=== PATIENT | male | born 1965 | race African-American/Black ===

== ENCOUNTER 2016-12-17 09:11 | Emergency (ER) | payer OTHER ==
[~2016-12-17] VITALS: Ht 167.6 cm; Wt 65.0 kg
[~2016-12-17 09:11] MED LIST: 1-ME1LIQ PO; BACT800T5 PO; DARU1TAB PO; LISI-363 PO; TENO300 PO; [UNRECOGNIZED DRUG - CODE] PO
--- NOTE | 2016-12-17 09:39 | PD ---
HPI Chief Complaint: Bowen act with homicidal ideation Time Seen by Provider: 09:24 Travel History International Travel<30 days: No Contact w/Intl Traveler<30days: No Traveled to known affect area: No History of Present Illness HPI This is a 51-year-old gentleman with history of HIV disease, hypertension, who is brought in under a Bowen act after he reportedly stated he wanted to kill an associate of his. The patient states that he called 911 because he knew that if he did follow through with his intent, he would be in care home. He states that he does have homicidal ideation. He denies any suicidal ideation. He states homicidal ideation is to this one individual whom he reports having bad relations with. The patient has no somatic complaints at this time. He does report that he was drinking heavily over the last 24 hours. He denies any drugs of abuse. He does state that he uses occasional tobacco products. PFSH Past Medical History Hx Anticoagulant Therapy: No Blood Disorders: No Cardiovascular Problems: Yes (HTN) Chemotherapy: No Congestive Heart Failure: No Cerebrovascular Accident: No Diabetes: No Diminished Hearing: No Gastrointestinal Disorders: No Genitourinary: No Hypertension: Yes Immune Disorder: Yes (HIV POSITIVE) Musculoskeletal: No Neurologic: No Psychiatric: No Reproductive: No Respiratory: No Immunizations Current: No Sleep Apnea: No Thyroid Disease: Yes (HYPOTHYROID) Past Surgical History Abdominal Surgery: No Appendectomy: No Cardiac Surgery: No Cholecystectomy: No Ear Surgery: No Endocrine Surgery: No Eye Surgery: No Genitourinary Surgery: No Gynecologic Surgery: No Joint Replacement: No Neurologic Surgery: No Oral Surgery: No Thoracic Surgery: No Other Surgery: Yes (RIGHT KNEE SURGERY) Social History Alcohol Use: Yes (DAILY) Tobacco Use: Yes (1 cig per day ) Substance Use: Yes (MARIJUANA) Allergies-Medications (Allergen,Severity, Reaction): Coded Allergies: No Known Allergies (Verified , 12/17/16) Reported Meds & Prescriptions Reported Meds & Active Scripts Active Reported Triumeq (Osqknhvu-Uywfmxbrnqrh-Iqjifaygma) 600-50-300 Mg Tab 1 Tab PO DAILY Hazardous agent; use appropriate precautions for handling & disposal. Review of Systems Except as stated in HPI: all other systems reviewed are Neg General / Constitutional: No: Fever, Chills HENT: No: Headaches Cardiovascular: No: Chest Pain or Discomfort, Palpitations Respiratory: No: Cough, Shortness of Breath Gastrointestinal: No: Nausea, Vomiting, Abdominal Pain Musculoskeletal: Positive: Pain (right sided rib pain), No: Weakness Neurologic: No: Weakness, Dizziness, Syncope Psychiatric: Positive: Substance Abuse, Homicidal Ideation, No: Suicidal Ideations Physical Exam Narrative GENERAL: Well-nourished, well-developed patient, in no acute respiratory distress. SKIN: Focused skin assessment warm/dry. HEAD: Normocephalic/atraumatic. EYES: No scleral icterus. No injection or drainage. NECK: Supple, trachea midline. CARDIOVASCULAR: Regular rate and rhythm without murmurs, gallops, or rubs. RESPIRATORY: Breath sounds equal bilaterally. No accessory muscle use. Patient has tenderness on his right lateral rib cage. There is no crepitance or deformity noted. GASTROINTESTINAL: Abdomen soft, non-tender, nondistended. MUSCULOSKELETAL: No cyanosis, or edema. NEUROLOGICAL: Awake and alert. Cranial nerves II through XII intact. Motor grossly within normal limits. Five out of 5 muscle strength in all muscle groups. Normal speech, despite alcohol use. PSYCHIATRIC: No delusional thought processes. No hallucinations. Data Data Last Documented VS Vital Signs Date Time Temp Pulse Resp B/P Pulse Ox O2 Delivery O2 Flow Rate FiO2 12/17/16 09:49 98.4 104 18 176/105 100 Orders Complete Blood Count With Diff (12/17/16 09:25) Comprehensive Metabolic Panel (12/17/16 09:25) Psych Screen (12/17/16 09:25) Drug Screen, Random Urine (12/17/16 09:25) Alcohol (Ethanol) (12/17/16 09:25) Chest, Single Ap (12/17/16 09:25) Diet Regular Basic (12/17/16 Lunch) Labs Laboratory Tests Test 12/17/16 12/17/16 09:30 09:40 White Blood Count 6.0 TH/MM3 Red Blood Count 4.31 MIL/MM3 Hemoglobin 13.8 GM/DL Hematocrit 39.3 % Mean Corpuscular Volume 91.2 FL Mean Corpuscular Hemoglobin 31.9 PG Mean Corpuscular Hemoglobin 35.0 % Concent Red Cell Distribution Width 16.8 % Platelet Count 354 TH/MM3 Mean Platelet Volume 6.9 FL Neutrophils (%) (Auto) 37.8 % Lymphocytes (%) (Auto) 53.8 % Monocytes (%) (Auto) 7.0 % Eosinophils (%) (Auto) 0.8 % Basophils (%) (Auto) 0.6 % Neutrophils # (Auto) 2.3 TH/MM3 Lymphocytes # (Auto) 3.2 TH/MM3 Monocytes # (Auto) 0.4 TH/MM3 Eosinophils # (Auto) 0.0 TH/MM3 Basophils # (Auto) 0.0 TH/MM3 CBC Comment DIFF FINAL Differential Comment Sodium Level 140 MEQ/L Potassium Level 4.1 MEQ/L Chloride Level 104 MEQ/L Carbon Dioxide Level 30.3 MEQ/L Anion Gap 6 MEQ/L Blood Urea Nitrogen 8 MG/DL Creatinine 0.85 MG/DL Estimat Glomerular Filtration 114 ML/MIN Rate Random Glucose 83 MG/DL Calcium Level 8.5 MG/DL Total Bilirubin 0.2 MG/DL Aspartate Amino Transf 32 U/L (AST/SGOT) Alanine Aminotransferase 25 U/L (ALT/SGPT) Alkaline Phosphatase 63 U/L Total Protein 8.9 GM/DL Albumin 3.7 GM/DL Ethyl Alcohol Level 293 MG/DL Urine Opiates Screen NEG Urine Barbiturates Screen NEG Urine Amphetamines Screen NEG Urine Benzodiazepines Screen NEG Urine Cocaine Screen NEG Urine Cannabinoids Screen NEG MDM Medical Decision Making Medical Screen Exam Complete: Yes Emergency Medical Condition: Yes Medical Record Reviewed: Yes Differential Diagnosis Substance induced mood disorder versus psychosis versus metabolic derangement. Narrative Course 51-year-old gentleman with history of alcohol abuse, presents here under Bowen act after he threatened to kill a acquaintance. The patient states that when people "cross him" he has no problem threatening to kill them. The patient did call 911 because he realizes that if things progress he would likely kill this person. He does report drinking alcohol today. His alcohol level is 293. He will be medically clear for psychiatric evaluation. He is awake. Diagnosis Primary Impression: Homicidal ideation Additional Impressions: Alcohol intoxication medically cleared Gael Singh MD Dec 17, 2016 09:39
[2016-12-17] MEDS ORDERED: ABAC1TAB3 PO (09:47)
[2016-12-17 09:49] VITALS: BP 176/105; PULSE 104; RESP 18; TEMP 98.4; O2SAT 100
[2016-12-17 09:56] LABS: AUTOMATED NEUTROPHIL # 2.3 TH/MM3 (1.8-7.7); BASOPHIL % 0.6 % (0.0-2.0); EOSINOPHIL % 0.8 % (0.0-4.0); HEMATOCRIT 39.3 % (39.0-51.0); HEMO FLAGS DIFF FINAL; LYMPH % 53.8 % (9.0-44.0); LYMPHOCYTE # 3.2 TH/MM3 (1.0-4.8); MEAN CELL VOLUME 91.2 FL (80.0-100.0); MEAN CORPUSCULAR HEMOGLOBIN 31.9 PG (27.0-34.0); NEUT % 37.8 % (16.0-70.0); PLATELET COUNT 354 TH/MM3 (150-450); RED BLOOD COUNT 4.31 MIL/MM3 (4.50-5.90); RED CELL DISTRIBUTION WIDTH 16.8 % (11.6-17.2)
--- NOTE | 2016-12-17 09:58 | RADRPT ---
EXAM DATE/TIME: 12/17/2016 09:34 [facility] COMPARISON: CHEST SINGLE AP, January 25, 2016, 1:00. INDICATIONS : Right rib pain. MEDICAL HISTORY : None. SURGICAL HISTORY : None. ENCOUNTER: Initial ACUITY: 1 week PAIN SCORE: 8/10 LOCATION: Right Ribs FINDINGS: A single view of the chest demonstrates the lungs to be symmetrically aerated without evidence of mas s, infiltrate or effusion. The cardiomediastinal contours are unremarkable. Mild thoracic scoliosis is noted. Osseous structures are intact. There is no evidence of displaced rib fracture. CONCLUSION: No acute disease. No evidence of displaced rib fracture or focal rib abnormality. Joe Silverio MD on December 17, 2016 at 9:55 Board Certified Radiologist. This report was verified electronically.
[2016-12-17 10:04] LABS: AMPHETAMINE, URINE NEG (NEG); BARBITURATES, URINE NEG (NEG); COCAINE, URINE NEG (NEG)
[2016-12-17 10:21] LABS: ANION GAP 6 MEQ/L (5-15)
[2016-12-17 10:24] LABS: ALKALINE PHOSPHATASE 63 U/L (45-117); ALT (GPT) 25 U/L (12-78); AST (GOT) 32 U/L (15-37); BICARBONATE 30.3 MEQ/L (21.0-32.0); BLOOD UREA NITROGEN 8 MG/DL (7-18); CHLORIDE 104 MEQ/L (98-107); GLOMERULAR FILTRATION RATE 114 ML/MIN (>89); POTASSIUM 4.1 MEQ/L (3.5-5.1); SODIUM (NA) 140 MEQ/L (136-145); TOTAL BILIRUBIN ADULT 0.2 MG/DL (0.2-1.0)
[2016-12-17 11:00] VITALS: BP 174/99; PULSE 97; RESP 17; O2SAT 98
[2016-12-17 13:00] VITALS: BP 171/97; PULSE 94; RESP 16; O2SAT 97
[2016-12-17 13:58] VITALS: BP 171/100; PULSE 89; RESP 18; TEMP 99; O2SAT 100
[2016-12-17] MEDS ORDERED: cloNIDine HCL 0.1 MG TAB PO ONE (18:00)
--- NOTE | 2016-12-17 18:13 | PD ---
History of Present Illness Chief Complaint: Psychiatric Symptoms Time Seen by Provider: 17:30 Travel History International Travel<30 Days: No Contact w/Intl Traveler<30days: No Known affected area: No Legal Status Legal Status: Bowen Act History of Present Illness: History of Present Illness HPI This is a 51-year-old gentleman with history of HIV as well as hypertension, alcohol abuse and no previous psychiatric history who is brought in under a Bowen act initiated by MIGUELINA. As per the BA report the patient called the police and advised them that he kolb a knife and wanted to kill himself. He advised that he can't handle life any longer and that he wants to end his life. He did not make any attempts at harming himself. The patient was intoxicated at the time of the call and upon arrival to ED presets a BAL of 293. Toxicology is negative. EMR reviewed. One previous contact with [facility] psychiatric dept on January 2016 after he was treated for substance induced mood disorder. The patient is seen after he is clinically sober. He is calm, cooperative. Speech is clear and logical. There is no symptoms of withdrawal and no tremors. There is no psychosis and no adrianna. He states " I am trying to stop the madness. I am tired of the drinking because there is nothing else to do. I don't want to hurt no one right now but I don't feel well. He reports that he drinks on a daily basis unknown amount depending on the amount of money that he has. He sleeps poorly, low appetite. he has not had any treatment for his substance use. He does report that he takes his HIV medication. PFSH Past Medical History Hx Anticoagulant Therapy: No Blood Disorders: No Cardiovascular Problems: Yes (HTN) Chemotherapy: No Congestive Heart Failure: No Cerebrovascular Accident: No Diabetes: No Diminished Hearing: No Gastrointestinal Disorders: No Genitourinary: No Hypertension: Yes Immune Disorder: Yes (HIV POSITIVE) Musculoskeletal: No Neurologic: No Psychiatric: No Reproductive: No Respiratory: No Immunizations Current: No Sleep Apnea: No Thyroid Disease: Yes Tetanus Vaccination: < 5 Years Influenza Vaccination: No Past Surgical History Abdominal Surgery: No Appendectomy: No Cardiac Surgery: No Cholecystectomy: No Ear Surgery: No Endocrine Surgery: No Eye Surgery: No Genitourinary Surgery: No Gynecologic Surgery: No Joint Replacement: No Neurologic Surgery: No Oral Surgery: No Thoracic Surgery: No Other Surgery: Yes (RIGHT KNEE SURGERY) Psychiatric History Psychiatric History Hx Psychiatric Treatment: DENIES any previous. History of Inpatient Treatment: No Guns or firearms in home: No Social History Single male originally from [place]. Is homeless. Never and no family in the area. He works as a roofing laborer. Hx Alcohol Use: Yes ("A LOT EVERY DAY") Hx Tobacco Use: Yes (OCC) Hx Substance Use: Yes (MARIJUANA) Substance Use Type: Alcohol, Marijuana Hx of Substance Use Treatment: Yes Family Psychiatric History nopne reported. Allergies-Medications (Allergen,Severity, Reaction): Coded Allergies: No Known Allergies (Verified , 12/17/16) Reported Meds & Prescriptions Reported Meds & Active Scripts Active Reported Triumeq (Fqrojigr-Ltrafwxeiupg-Pfgjjqbesu) 600-50-300 Mg Tab 1 Tab PO DAILY Hazardous agent; use appropriate precautions for handling & disposal. Review of Systems Constitutional: COMPLAINS OF: Fatigue Endocrine: DENIES: Heat/cold intolerance, Polydipsia, Polyuria, Polyphagia Eyes: DENIES: Blurred vision, Diplopia, Eye inflammation, Eye pain, Vision loss , Photosensitivity, Double Vision Ears, nose, mouth, throat: DENIES: Tinnitus, Hearing loss, Vertigo, Nasal discharge, Oral lesions, Throat pain, Hoarseness, Ear Pain, Running Nose, Epistaxis, Sinus Pain, Toothache, Odynophagia Respiratory: DENIES: Apneas, Cough, Snoring, Wheezing, Hemoptysis, Sputum production, Shortness of breath Cardiovascular: DENIES: Chest pain, Palpitations, Syncope, Dyspnea on Exertion , PND, Lower Extremity Edema, Orthopnea, Claudication Genitourinary: DENIES: Sexual dysfunction, Urinary frequency, Urinary incontinence, Urgency, Hematuria, Dysuria, Nocturia, Penile Discharge, Testicular Pain, Testicular Swelling Musculoskeletal: DENIES: Joint pain, Muscle aches, Stiffness, Joint Swelling, Back pain, Neck pain Integumentary: DENIES: Abnormal pigmentation, Nail changes, Pruritus, Rash Hematologic/lymphatic: DENIES: Bruising, Lymphadenopathy Immunologic/allergic: DENIES: Eczema, Urticaria Neurologic: DENIES: Abnormal gait, Headache, Localized weakness, Paresthesias, Seizures, Speech Problems, Tremor, Poor Balance Psychiatric: COMPLAINS OF: Suicidal Ideation Exam Alert: Yes [place]: Person (ox4) Mood: Calm Affect: Appropriate Speech: Clear, Logical Eye Contact: Normal Memory Intact: Comment (no impairment) Hallucinations: Other (negative) Delusions: No Suicidal: Ideation (deneis at present) Homicidal: Ideation (deneis at present) Insight/Judgement poor. not impaired. MDM Medical Decision Making Medical Record Reviewed: Yes Assessment/Plan 51 year old male with history of alcohol abuse and alcohol induced mood disorder that called the police while intoxicated as he was feeling suicidal. The patient has been monitored here and is now clinically sober. Although he reports that he is no longer suicidal he is feeling hopeless and dysphoric. This may be secondary to his alcohol abuse. I have lifted the BA at si time. I will have staff place him on SMA list for detoxification as well as substane abuse tretament. Will monitor vitals and recommend [facility] protocol. Orders Complete Blood Count With Diff (12/17/16 09:25) Comprehensive Metabolic Panel (12/17/16 09:25) Psych Screen (12/17/16 09:25) Drug Screen, Random Urine (12/17/16 09:25) Alcohol (Ethanol) (12/17/16 09:25) Chest, Single Ap (12/17/16 09:25) Diet Regular Basic (12/17/16 Lunch) Diet Regular Basic (12/17/16 Dinner) Clonidine (Catapres) (12/17/16 18:00) Results Vital Signs Date Time Temp Pulse Resp B/P Pulse Ox O2 Delivery O2 Flow Rate FiO2 12/17/16 13:58 99.0 89 18 171/100 100 Room Air 12/17/16 13:00 94 16 171/97 97 Room Air 12/17/16 11:00 97 17 174/99 98 Room Air 12/17/16 09:49 98.4 104 18 176/105 100 Laboratory Tests Test 12/17/16 12/17/16 09:30 09:40 White Blood Count 6.0 Red Blood Count 4.31 Hemoglobin 13.8 Hematocrit 39.3 Mean Corpuscular Volume 91.2 Mean Corpuscular Hemoglobin 31.9 Mean Corpuscular Hemoglobin 35.0 Concent Red Cell Distribution Width 16.8 Platelet Count 354 Mean Platelet Volume 6.9 Neutrophils (%) (Auto) 37.8 Lymphocytes (%) (Auto) 53.8 Monocytes (%) (Auto) 7.0 Eosinophils (%) (Auto) 0.8 Basophils (%) (Auto) 0.6 Neutrophils # (Auto) 2.3 Lymphocytes # (Auto) 3.2 Monocytes # (Auto) 0.4 Eosinophils # (Auto) 0.0 Basophils # (Auto) 0.0 CBC Comment DIFF FINAL Differential Comment Sodium Level 140 Potassium Level 4.1 Chloride Level 104 Carbon Dioxide Level 30.3 Anion Gap 6 Blood Urea Nitrogen 8 Creatinine 0.85 Estimat Glomerular Filtration 114 Rate Random Glucose 83 Calcium Level 8.5 Total Bilirubin 0.2 Aspartate Amino Transf 32 (AST/SGOT) Alanine Aminotransferase 25 (ALT/SGPT) Alkaline Phosphatase 63 Total Protein 8.9 Albumin 3.7 Ethyl Alcohol Level 293 Urine Opiates Screen NEG Urine Barbiturates Screen NEG Urine Amphetamines Screen NEG Urine Benzodiazepines Screen NEG Urine Cocaine Screen NEG Urine Cannabinoids Screen NEG Diagnosis Primary Impression: Alcohol intoxication Additional Impression: with alcohol induced mood disorder Ruled Out: Homicidal ideation Problem Qualifiers Primary Impression: Alcohol intoxication Qualified Code: F10.120 - Alcohol intoxication, uncomplicated Dasha Rodriguez [facility] Dec 17, 2016 18:13
[2016-12-17 18:30] VITALS: BP 154/89; PULSE 89; RESP 18
[2016-12-17] MEDS ORDERED: LORazepam 2 MG/ML VIAL IV PUSH PRN ×4 (18:45)
[2016-12-17] MEDS ORDERED: LORazepam 2 MG TAB PO PRN (18:45)
[2016-12-17] MEDS ORDERED: LORazepam 1 MG TAB PO PRN (18:45)
[2016-12-17] MEDS ORDERED: FLUMAZENIL 0.5 MG/5 ML VIAL IV PUSH PRN (18:45)
[2016-12-17 22:20] VITALS: BP 143/89; PULSE 86; RESP 18; O2SAT 99
[2016-12-18 06:31] VITALS: BP 172/88; PULSE 71; RESP 16
== END 2016-12-18 09:06 | disposition home or self-care (01) ==
LOC: NEPE 09:11 → NEPJ 12-18 09:06
DX: F10.14 Alcohol abuse with alcohol-induced mood disorder (principal); R45.850 Homicidal ideations; I10 Essential (primary) hypertension; Z21 Asymptomatic human immunodeficiency virus [HIV] infection status; Z72.0 Tobacco use
CPT/HCPCS: 71010; 80053; 80307; 85025; 99285

== ENCOUNTER 2017-01-23 22:33 | Emergency (ER) | payer OTHER ==
[~2017-01-23] VITALS: Ht 167.6 cm; Wt 68.0 kg
[~2017-01-23 22:33] MED LIST changes: -1-ME1LIQ PO; +ABAC1TAB3 PO; -BACT800T5 PO; -DARU1TAB PO; -LISI-363 PO; -TENO300 PO; -[UNRECOGNIZED DRUG - CODE] PO
[2017-01-23 23:01] VITALS: BP 159/100; PULSE 98; RESP 20; TEMP 98.2; O2SAT 98
[2017-01-23 23:29] LABS: AUTOMATED NEUTROPHIL # 4.4 TH/MM3 (1.8-7.7); BASOPHIL # 0.1 TH/MM3 (0-0.2); BASOPHIL % 0.6 % (0.0-2.0); EOSINOPHIL # 0.1 TH/MM3 (0-0.4); EOSINOPHIL % 1.5 % (0.0-4.0); HEMATOCRIT 41.5 % (39.0-51.0); HEMO FLAGS DIFF FINAL; LYMPH % 44.5 % (9.0-44.0); LYMPHOCYTE # 4.3 TH/MM3 (1.0-4.8); MEAN CORPUSCULAR HEMOGLOBIN 31.5 PG (27.0-34.0); MEAN CORPUSCULAR HGB CONC 33.9 % (32.0-36.0); MONO % 8.5 % (0.0-8.0); NEUT % 44.9 % (16.0-70.0); PLATELET COUNT 285 TH/MM3 (150-450); RED BLOOD COUNT 4.46 MIL/MM3 (4.50-5.90); RED CELL DISTRIBUTION WIDTH 16.8 % (11.6-17.2); WHITE BLOOD COUNT 9.7 TH/MM3 (4.0-11.0)
[2017-01-23 23:38] LABS: AMPHETAMINE, URINE NEG (NEG); BARBITURATES, URINE NEG (NEG); COCAINE, URINE NEG (NEG)
[2017-01-23 23:45] LABS: ANION GAP 8 MEQ/L (5-15)
[2017-01-24] LABS: ALKALINE PHOSPHATASE 88 U/L (45-117); ALT (GPT) 26 U/L (12-78); AST (GOT) 42 U/L (15-37); BICARBONATE 27.7 MEQ/L (21.0-32.0); BLOOD UREA NITROGEN 10 MG/DL (7-18); CHLORIDE 106 MEQ/L (98-107); GLOMERULAR FILTRATION RATE 116 ML/MIN (>89); POTASSIUM 3.9 MEQ/L (3.5-5.1); SODIUM (NA) 142 MEQ/L (136-145); TOTAL BILIRUBIN ADULT 0.2 MG/DL (0.2-1.0)
[2017-01-24 00:01] LABS: ACETAMINOPHEN LESS THAN 2.0 MCG/ML (10.0-30.0)
[2017-01-24 00:12] VITALS: BP 155/97; PULSE 87; RESP 18; O2SAT 97
--- NOTE | 2017-01-24 00:12 | PD ---
HPI Chief Complaint: Psychiatric Symptoms Time Seen by Provider: 00:10 Travel History International Travel<30 days: No Contact w/Intl Traveler<30days: No Traveled to known affect area: No History of Present Illness HPI The patient is a 51 year old male who presents to the [facility] emergency department with a history of being Bowen acted prior to arrival due to a report of thoughts of harming himself. He was requesting help. The patient on arrival reports that he has been depressed area he reports that he has not been able to get work and when he cannot work he drinks as much alcohol as he can get a hold of. The patient reports that he is close to the edge and is concerned that he is going to harm himself and others. And review of systems, the patient denies any recent fevers, cough, congestion, neck pain, chest pain, shortness of breath, abdominal pain, vomiting, diarrhea, urinary symptoms, or neurologic symptoms. PFSH Past Medical History Narrative Medical The patient's past medical history is significant for HIV, history of alcohol abuse, history of hepatitis A, history of medication noncompliance, hypertension , marijuana use. Hx Anticoagulant Therapy: No Blood Disorders: No Cardiovascular Problems: Yes (HTN) Chemotherapy: No Congestive Heart Failure: No Cerebrovascular Accident: No Diabetes: No Diminished Hearing: No Gastrointestinal Disorders: No Genitourinary: No Hypertension: Yes Immune Disorder: Yes (HIV POSITIVE) Musculoskeletal: No Neurologic: No Psychiatric: No Reproductive: No Respiratory: No Immunizations Current: No Sleep Apnea: No Thyroid Disease: Yes Influenza Vaccination: No Past Surgical History Narrative Surgical The patient's past surgical history is significant for right knee surgery. Abdominal Surgery: No Appendectomy: No Cardiac Surgery: No Cholecystectomy: No Ear Surgery: No Endocrine Surgery: No Eye Surgery: No Genitourinary Surgery: No Gynecologic Surgery: No Joint Replacement: No Neurologic Surgery: No Oral Surgery: No Thoracic Surgery: No Other Surgery: Yes (RIGHT KNEE SURGERY) Social History Alcohol Use: Yes ("A LOT EVERY DAY") Tobacco Use: Yes (a few per day) Substance Use: Yes (PT STATES "ALL THE DRUGS") Allergies-Medications (Allergen,Severity, Reaction): Coded Allergies: No Known Allergies (Verified , 01/24/17) Reported Meds & Prescriptions Reported Meds & Active Scripts Active Reported Triumeq (Sytlrxlm-Fcjiaewpsaok-Nlsaylhaue) 600-50-300 Mg Tab 1 Tab PO DAILY Hazardous agent; use appropriate precautions for handling & disposal. Review of Systems Except as stated in HPI: all other systems reviewed are Neg General / Constitutional: No: Fever Eyes: No: Visual changes HENT: No: Headaches Cardiovascular: No: Chest Pain or Discomfort Respiratory: No: Shortness of Breath Gastrointestinal: No: Abdominal Pain Genitourinary: No: Dysuria Musculoskeletal: No: Pain Skin: No Rash Neurologic: No: Weakness Psychiatric: Positive: Depression, Suicidal Ideations, Disorder of Thought, Mood Disorder, Substance Abuse, Homicidal Ideation, No: Anxiety Endocrine: No: Polydipsia Hematologic/Lymphatic: No: Easy Bruising Physical Exam Narrative General: The patient is a well-developed well-nourished male in no acute distress. Head and Neck exam: Head is normocephalic atraumatic. Eyes: EOMI, pupils are equal round and reactive to light. Nose: Midline septum with pink mucous membranes Mouth: Dentition unremarkable. Moist mucus membranes. Posterior oropharynx is not erythematous. No tonsillar hypertrophy. Uvula midline. Airway patent. Neck: No palpable lymphadenopathy. No nuchal rigidity. No thyromegaly. Cardiovascular: Regular rate and rhythm without murmurs, gallops, or rubs. Lungs: Clear to auscultation bilaterally. No wheezes, rhonchi, or rales. Abdomen: Soft, without tenderness to palpation in all 4 quadrants of the abdomen. No guarding, rebound, or rigidity. Normal bowel sounds are audible. No tenderness on palpation of McBurney's point. Extremities: No clubbing, cyanosis, or edema. 2+ pulses in all 4 extremities. No calf tenderness on palpation. Back: No costovertebral angle tenderness to palpation. Neurologic Exam: Cranial nerves 2-12 were intact on exam. Strength is 5/5 in all 4 extremities. No sensory deficits noted. The patient has slightly slurred speech with an odor of alcohol about him. The patient is oriented to person, place, and situation however not time. Skin Exam: No rash noted. Intact skin that is warm and dry. Data Data Last Documented VS Vital Signs Date Time Temp Pulse Resp B/P Pulse Ox O2 Delivery O2 Flow Rate FiO2 01/24/17 00:12 87 18 155/97 97 Room Air 01/23/17 23:01 98.2 Orders Complete Blood Count With Diff (01/23/17 22:52) Comprehensive Metabolic Panel (01/23/17 22:52) Psych Screen (01/23/17 22:52) Drug Screen, Random Urine (01/23/17 22:52) Alcohol (Ethanol) (01/23/17 22:52) Salicylates (Aspirin) (01/23/17 22:52) Tylenol (Acetaminophen) (01/23/17 22:52) Labs Laboratory Tests Test 01/23/17 23:00 White Blood Count 9.7 TH/MM3 Red Blood Count 4.46 MIL/MM3 Hemoglobin 14.0 GM/DL Hematocrit 41.5 % Mean Corpuscular Volume 93.0 FL Mean Corpuscular Hemoglobin 31.5 PG Mean Corpuscular Hemoglobin 33.9 % Concent Red Cell Distribution Width 16.8 % Platelet Count 285 TH/MM3 Mean Platelet Volume 6.8 FL Neutrophils (%) (Auto) 44.9 % Lymphocytes (%) (Auto) 44.5 % Monocytes (%) (Auto) 8.5 % Eosinophils (%) (Auto) 1.5 % Basophils (%) (Auto) 0.6 % Neutrophils # (Auto) 4.4 TH/MM3 Lymphocytes # (Auto) 4.3 TH/MM3 Monocytes # (Auto) 0.8 TH/MM3 Eosinophils # (Auto) 0.1 TH/MM3 Basophils # (Auto) 0.1 TH/MM3 CBC Comment DIFF FINAL Differential Comment Salicylates Level 2.1 MG/DL Urine Opiates Screen NEG Urine Barbiturates Screen NEG Urine Amphetamines Screen NEG Urine Benzodiazepines Screen NEG Urine Cocaine Screen NEG Urine Cannabinoids Screen NEG Sodium Level 142 MEQ/L Potassium Level 3.9 MEQ/L Chloride Level 106 MEQ/L Carbon Dioxide Level 27.7 MEQ/L Anion Gap 8 MEQ/L Blood Urea Nitrogen 10 MG/DL Creatinine 0.84 MG/DL Estimat Glomerular Filtration 116 ML/MIN Rate Random Glucose 77 MG/DL Calcium Level 8.8 MG/DL Total Bilirubin 0.2 MG/DL Aspartate Amino Transf 42 U/L (AST/SGOT) Alanine Aminotransferase 26 U/L (ALT/SGPT) Alkaline Phosphatase 88 U/L Total Protein 9.0 GM/DL Albumin 3.8 GM/DL Acetaminophen Level LESS THAN 2.0 MCG/ML Ethyl Alcohol Level 403 MG/DL [facility] Medical Decision Making Medical Screen Exam Complete: Yes Emergency Medical Condition: Yes Medical Record Reviewed: Yes Differential Diagnosis Depression with suicidal and homicidal ideations, versus substance induced mood disorder Narrative Course During the course of the patients emergency department visit, the patients history, examination, and differential diagnosis were reviewed with the patient. The patient had IV access obtained and blood work sent for analysis. The patient was placed on a malted milk mixer with oximetry and blood pressure monitoring. The patient's Bowen act was reviewed. A psychiatric screen was ordered. The patients laboratory studies were reviewed and remarkable for a white count of 9.7, hemoglobin 14, platelets 285 with lymphocytes 44.5, monos 8.5, CMP is remarkable for an AST 42, total protein 9.0, urine drug screen is negative, salicylate 2.1, acetaminophen less than 2, alcohol 403. CIWA protocol will be instituted for the patient. The patient has been medically cleared for admission and screening by the psychiatric screener under a Bowen act. Diagnosis Primary Impression: Depression with suicidal ideation Additional Impression: Alcohol intoxication Qualified Code: F10.929 - Alcohol intoxication, with unspecified complication Rufina Grier MD January 24, 2017 00:12
[2017-01-24] MEDS ORDERED: FLUMAZENIL 0.5 MG/5 ML VIAL IV PUSH PRN (01:00)
[2017-01-24] MEDS ORDERED: LORazepam 2 MG TAB PO PRN (01:00)
[2017-01-24] MEDS ORDERED: LORazepam 2 MG/ML VIAL IV PUSH PRN ×4 (01:00)
[2017-01-24] MEDS ORDERED: LORazepam 1 MG TAB PO PRN (01:00)
[2017-01-24 07:11] VITALS: BP 114/72; PULSE 86; RESP 18; O2SAT 95
--- NOTE | 2017-01-24 15:48 | PD.CONS ---
Provisional Diagnosis Admission Date [place] I. Alcohol induced mood disorder, alcohol use disorder History of Present Illness Service Psychiatry Consult Requested By Primary Care Physician Unknown HPI The patient is a 51-year-old man, homeless, unemployed, single , with no previous psychiatric history, no previous suicidal attempts, no previous psychiatric hospitalizations, alcohol use disorder, medical history of HIV, who presents to the [facility] emergency department with a history of being Bowen acted prior to arrival due to a report of thoughts of harming himself. He was requesting help. The patient on arrival reports that he has been depressed area he reports that he has not been able to get work and when he cannot work he drinks as much alcohol as he can get a hold of. The patient reports that he is close to the edge and is concerned that he is going to harm himself and others. Initial BAL was 403. Today a psychiatric evaluation patient is clinically sober, he is calm, cooperative, in a good spirit. He says that last night he was just drunk, he doesn't remember what he told to the ER team. He says that he has too many reasons to live for and he loves life. He denies depressive symptoms, he denies suicidal or homicidal ideation, he denies visual and auditory hallucinations. Patient is oriented 3, no paranoia , no delusions, no agitation or aggressive behavior present. Review of Systems Constitutional: DENIES: Diaphoretic episodes, Fatigue, Fever, Weight gain, Weight loss, Chills, Dizziness, Change in appetite, Night Sweats Endocrine: DENIES: Heat/cold intolerance, Polydipsia, Polyuria, Polyphagia Eyes: DENIES: Blurred vision, Diplopia, Eye inflammation, Eye pain, Vision loss , Photosensitivity, Double Vision Ears, nose, mouth, throat: DENIES: Tinnitus, Hearing loss, Vertigo, Nasal discharge, Oral lesions, Throat pain, Hoarseness, Ear Pain, Running Nose, Epistaxis, Sinus Pain, Toothache, Odynophagia Respiratory: DENIES: Apneas, Cough, Snoring, Wheezing, Hemoptysis, Sputum production, Shortness of breath Cardiovascular: DENIES: Chest pain, Palpitations, Syncope, Dyspnea on Exertion , PND, Lower Extremity Edema, Orthopnea, Claudication Gastrointestinal: DENIES: Abdominal pain, Black stools, Bloody stools, Constipation, Diarrhea, Nausea, Vomiting, Difficulty Swallowing, Anorexia Genitourinary: DENIES: Sexual dysfunction, Urinary frequency, Urinary incontinence, Urgency, Hematuria, Dysuria, Nocturia, Penile Discharge, Testicular Pain, Testicular Swelling Musculoskeletal: DENIES: Joint pain, Muscle aches, Stiffness, Joint Swelling, Back pain, Neck pain Integumentary: DENIES: Abnormal pigmentation, Nail changes, Pruritus, Rash Hematologic/lymphatic: DENIES: Bruising, Lymphadenopathy Immunologic/allergic: DENIES: Eczema, Urticaria Psychiatric: DENIES: Anxiety, Confusion, Mood changes, Depression, Hallucinations, Agitation, Suicidal Ideation, Homicidal Ideation, Delusions Past Family Social History Coded Allergies: No Known Allergies (Verified , 01/24/17) Reported Medications Rhmfvgzj-Owluoiosnxao-Xgwlneczfx (Triumeq)600-50-300 Mg Tab1 Tab PO DAILY #30 TAB Ref 0 Hazardous agent; use appropriate precautions for handling & disposal. 12/17/16 Family History Patient denies psychiatric family history Social History Patient was born and raised in [place], he is now homeless, unemployed, single, his highest level of education is 10th grade Patient's Strengths (min. 2) Verbal communication Physical Exam A physical exam no withdrawal symptoms, no tremors, no EPS, no psychomotor retardation or agitation, no stiffness present Vital Signs Vital Signs Date Time Temp Pulse Resp B/P Pulse Ox O2 Delivery O2 Flow Rate FiO2 01/24/17 07:11 86 18 114/72 95 Room Air 01/23/17 23:01 98.2 Lab Results BAL 403 Mental Status Examination Appearance man, poor hygiene, malodorous, calm and cooperative Speech: Unremarkable Orientation: x3 Memory: Unremarkable Thought Process: Logical Thought Content: Unremarkable Hallucination Type: None Suicidal Ideation: No Previous Suicide Attempts: No Homicidal Ideation: No Previous Homicide Attempts: No Judgment: WNL Mood: Appropriate Motor Activity: Normal gait Assessment & Plan Problem List: (1) Alcohol abuse with alcohol-induced mood disorder Assessment & Plan: At the moment of this evaluation the patient does not present any evidence of subjective or objective depression, anxiety, adrianna or psychosis. The patient denies suicidal and homicidal ideation, he denies visual and auditory hallucinations. Recent suicidal statement in the ER to be related with acute alcohol intoxication and most probably also related with malingering with secondary gain of using the hospital as a alf. He does not meet criteria for psychiatric admission at this moment. support, motivation and psychoeducation provided. Bowen act will be lifted. ICD Code: F10.14 Assessment & Plan Estimated LOS: Tremaine Alvarado MD January 24, 2017 15:48
== END 2017-01-24 11:32 | disposition home or self-care (01) ==
LOC: NEDAMB 22:33 → NEPC 01-24 11:32
DX: F32.89 Other specified depressive episodes (principal); R45.851 Suicidal ideations; F10.929 Alcohol use, unspecified with intoxication, unspecified; F10.14 Alcohol abuse with alcohol-induced mood disorder; I10 Essential (primary) hypertension; E07.9 Disorder of thyroid, unspecified; Z72.0 Tobacco use; Z21 Asymptomatic human immunodeficiency virus [HIV] infection status; Z86.79 Personal history of other diseases of the circulatory system; Z86.19 Personal history of other infectious and parasitic diseases
CPT/HCPCS: 80053; 80307; 85025; 99284